=== PATIENT | female | born 2000 | race African-American/Black ===

== ENCOUNTER 2023-07-06 23:10 | Emergency (ER) | payer SELFPAY ==
[2023-07-06] MEDS ORDERED: diphenhydrAMINE 50 MG/ML SDV IVPUSH ONE (23:34)
[2023-07-06] MEDS ORDERED: Metoclopramide 10 MG/2 ML SDV IVPUSH ONE (23:34)
[2023-07-06] MEDS ORDERED: Lactated Ringers 1,000 ML IV SCH (23:45)
[2023-07-06 23:49] LABS: EOSINOPHILS ABSOLUTE AUTO 0.1 K/uL (0.0-0.7); EOSINOPHILS PERCENT AUTO 2.6 % (0.0-7.0); HEMATOCRIT 35.1 % (36.0-46.0); HEMOGLOBIN 11.5 g/dL (12.0-16.0); LYMPHOCYTES ABSOLUTE AUTO 1.8 K/uL (0.6-2.4); LYMPHOCYTES PERCENT AUTO 34.3 % (16.0-40.0); MEAN CORPUSCULAR HEMOGLOBIN 26.7 pg (27.0-32.0); MEAN CORPUSCULAR HGB CONC 32.8 g/dL (31.0-37.0); MEAN CORPUSCULAR VOLUME 81.4 fL (80.0-98.0); MONOCYTES ABSOLUTE AUTO 0.4 K/uL (0.0-0.8); MONOCYTES PERCENT AUTO 7.9 % (0.0-15.0); NEUTROPHILS PERCENT AUTO 55.2 % (48.0-80.0); NRBC ABSOLUTE 0 K/uL; PLATELET COUNT,PLT 277 K/uL (150-400); RED BLOOD CELL COUNT 4.31 M/uL (4.30-5.90); WHITE BLOOD CELL COUNT,WBC 5.34 K/uL (4.0-11.0)
[2023-07-07 00:13] LABS: A/G RATIO 0.9 (0.9-1.6); ALBUMIN 3.4 g/dL (3.4-5.0); BILIRUBIN TOTAL 0.4 mg/dL (0.2-1.0); CALCIUM 8.8 mg/dL (8.5-10.1); CARBON DIOXIDE,CO2 25.2 mmol/L (21.0-32.0); CREATININE 0.8 mg/dL (0.6-1.0); EST CRCL DRUG DOSING (CG) 104.54 mL/min; POTASSIUM,K 3.6 mmol/L (3.5-5.1)
[2023-07-07] MEDS ORDERED: Acetaminophen 325 MG Tab PO ONE (03:46)
== END 2023-07-07 04:02 | disposition home or self-care (01) ==
LOC: MW.ED 23:10
DX: R51.9 Headache, unspecified (principal); Z91.040 Latex allergy status; Z20.822 Contact with and (suspected) exposure to COVID-19
CPT/HCPCS: 36415; 70450; 72125; 80053; 84702; 84703; 85025; 87635; 96374; 96375; 99284; A9270; J1200; J2765; J7120; U0002